=== PATIENT | male | born 1975 | race African-American/Black ===

== ENCOUNTER 2022-07-26 07:23 | Emergency (ER) | payer MEDICAID, OTHER ==
[~2022-07-26] VITALS: Ht 167.6 cm; Wt 105.0 kg
[2022-07-26] MEDS ORDERED: NEOMYCIN-BACITRACIN-POLYM 15GM TOP OINT TOP ONE (10:10)
[2022-07-26] MEDS ORDERED: TETANUS-DIPTH-ACEL PERTUSSIS 0.5ML SYR Tdap IM ONE (10:15)
[2022-07-26] MEDS ORDERED: NAPR500T31 PO (11:27)
[2022-07-26] MEDS ORDERED: TRAM50TA2 PO (11:27)
[2022-07-26] MEDS ORDERED: CEFD300C2 PO (11:27)
[2022-07-26 12:02] VITALS: BP 137/95
== END 2022-07-26 12:00 | disposition home or self-care (01) ==
LOC: ER 07:23
DX: S01.01XA Laceration without foreign body of scalp, initial encounter (principal); I10 Essential (primary) hypertension; V43.52XA Car driver injured in collision with other type car in traffic accident, initial encounter; Y93.89 Activity, other specified; Y92.488 Other paved roadways as the place of occurrence of the external cause; Y99.8 Other external cause status
CPT/HCPCS: 12002; 70450; 72131; 90471; 90715

== ENCOUNTER 2022-08-03 14:45 | Emergency (ER) | payer MEDICAID, OTHER ==
[~2022-08-03] VITALS: Ht 170.2 cm; Wt 98.0 kg
[~2022-08-03 14:45] MED LIST: CEFD300C2 PO; NAPR500T31 PO; TRAM50TA2 PO
[2022-08-03 14:58] VITALS: BP 146/86
== END 2022-08-03 17:21 | disposition left against medical advice (07) ==
LOC: ER 14:45
DX: S01.01XD Laceration without foreign body of scalp, subsequent encounter (principal); I10 Essential (primary) hypertension; Z79.899 Other long term (current) drug therapy; Z91.013 Allergy to seafood; V89.2XXD Person injured in unspecified motor-vehicle accident, traffic, subsequent encounter